=== PATIENT | female | born 1935 | race Caucasian/White ===

== ENCOUNTER → 2016-08-13 | Outpatient (CLI) | payer OTHER, BC ==
[~2016-08-13] VITALS: Ht 162.6 cm; Wt 70.9 kg
[~2016-08-13] MED LIST: AVAPRO300 MG PO; CENTRUM SILVER1 EAC4 PO; FENTANYL PA12 MCG/HR TD; FENTANYL PA25 MCG/HR TD; FENTANYL TD; FISH OIL 1,001000 M2 PO; HYDROCODONE-AP1 EAC6 PO; IRBESARTAN75 MG PO; IRON325 PO; LEVOTHYROXIN0.125 M1 PO; LIMBREL 500 MG500 MG PO; LIPITOR 20 MG T20 M1 PO; LYRICA 75 MG CA75 MG PO; MAGNESIUM OXID400 MG PO; MIRALAX17 GM PO; MOVANTIK25 MG PO; ONDANSETRON HCL4 M2 PO; OXECTA5 MG PO; OXYBUTYNIN 5 MG5 M2 PO; OXYCODONE HCL 55 MG PO; OXYCODONE HCL5 M1 PO; PERCOCET 7.5-31 EAC1 PO; PERCOCET 7.5-31 EACH PO; PRILOSEC20 MG PO; PROBIOTIC1 EAC2 PO; ROXICODONE5 M2 PO; ROXICODONE5 MG PO; SENNA8.6 MG PO; TRAZODONE HCL50 MG PO; TUMS PO; TYLENOL325 MG; VENLAFAXIN75 MG/1 T1 PO; VITAMIN B 6 PO; VITAMIN D2000 UNIT PO; VITAMINC500 PO; VOLTAREN GEL 1100 G1 TOP; ZANTAC 150MG T150 MG PO; [UNRECOGNIZED DRUG - OTHER]; fentanyl TD
--- NOTE | ~2016-08-13 | HPC ---
[facility] [place] [address] [place] [address] PAIN MANAGEMENT CONSULTATION Name: DANIELLE SMALLS Room #: REG [facility] Lloyd#: [id number] Admission: 08/13/16 Attend Phys: Joseph Hu DO Discharge: Date of : 33 Report #: [id number] THIS REPORT FOR: //name// CC: Art Hu The patient is a 81-year-old female typically treated for thoracolumbar scoliosis, thoracolumbar spondylosis, right shoulder pain requiring complex medication management. Last seen in pain clinic 05/07/2016. Continued on Duragesic 37 mcg (1 Duragesic patch at 25 mcg and 1 Duragesic patch at 12 mcg q. 73 hours), oxycodone 5 mg typically 75 tablets for 30-60 days. Voltaren gel topically. Last urine drug screen 11/15/2014 was positive for prescribed medications. When I last saw the patient, I recommended she follow up with an MRI and see orthopedist for consideration for definitive intervention on her shoulder. The patient did have an MRI arthrogram accomplished at [facility]. She followed up with Dr. Ross. Ultimately, suggested that her options were right total shoulder arthroplasty or simply conservative therapy. She elected to continue with conservative therapy. She is not at all interested in shoulder arthroplasty. She returns to pain clinic today stating "I am full of pain with scoliosis and right shoulder pain." Despite this, she does not want to do anything interventional with the shoulder. At 81 years of age, she is showing a little bit of depression and anxiety. She rates her pain at 3 on a 0-10 visual analog scale, upto 9 when she is standing. Again, pain in the right shoulder and chronic back pain for 10 years. We reviewed the fact that opiate medications are being used to provide analgesia adequate to support activities of daily living, not attempting to achieve a specific pain score on the 0-10 Visual Analog Scale. The current opiate medications are providing sufficient analgesia to allow the patient to participate in activities of daily living. The patient is not exhibiting any aberrant behavior suggestive of drug diversion. The patient is not having any adverse reactions to medications. The patient is not suffering from daytime somnolence or mental acuity changes. The patient is managing opiate-induced constipation with appropriate vvia-iij-vbwiboc agents and dietary considerations. The patient was counseled on concern for caution with operating a motor vehicle while using opiate medications. A physical exam was performed and the patient's functional status was evaluated. All patients with back pain were advised against the bed rest greater than 4 days and were advised to return to normal activities. Pain score assessment was noted and the treatment plan was reviewed with the patient. All current medications, both prescribed and OTC were reviewed and reconciled on the electronic medical record. Tobacco screening was accomplished and smoking [address] [address] PAIN MANAGEMENT CONSULTATION Name: DANIELLE SMALLS Room #: REG [facility] Lloyd#: [id number] Admission: 08/13/16 Attend Phys: Joseph Hu DO Discharge: Date of : 33 Report #: [id number] cessation was advised when indicated. BMI was noted and diet/exercise modification was recommended for all patients following outside normal parameters. I reviewed with the patient today their responsibilities to safeguard prescription medications, reviewed their responsibility to utilize medications only as prescribed by the physician. They are to seek and receive pain medications only from 1 physician group ( [facility]). They are to use 1 pharmacy and keep the clinic informed if they change pharmacies. Their responsibilities include making followup visits in a timely fashion and to avoid abrupt discontinuation of medication usage. Their responsibilities further include bringing their medications (bottles from the pharmacy with residual pills) to the visit for possible confirmation of pill counts and the patient understands it is their responsibility to submit to random drug screens to ensure both that the medications prescribed are present, and that no other controlled substances are present. All prescriptions provided today were generated electronically. The patient was seen in the company of her daughter who is supportive. PHYSICAL EXAMINATION: Shows an 81-year-old female, BMI is 26.8 kilograms per meter squared. Vital signs generally stable as noted in the EMR Cervical range of motion is full. Had a significant range reduction in range of motion in the right shoulder, arm, scoliosis is noted with diffuse tenderness in the axial back, thoracic and lumbar. Lower extremity strength, however, is preserved. Gait is tandem. ASSESSMENT: Symptomatic thoracolumbar scoliosis and spondylosis, right shoulder pain secondary to significant degenerative joint disease, the patient is electing not to proceed with further intervention requiring complex medication management. RECOMMENDATION: We will continue Duragesic 37 mcg q. 72 hours, oxycodone 5 mg p.r.n., typically taking 1-2 tablets a day. I have taken the liberty of writing for 1 prescription for 75 tablets, which should last 2 months. Continue Voltaren gel topically. Follow up in 2 months for reevaluation, earlier if needed. <ELECTRONICALLY SIGNED> By: Joseph Hu DO 08/14/16 [id number] Joseph Hu DO /nt
[2016-08-13 14:22] VITALS: BP 149/83
== END | disposition home or self-care (01) ==
LOC: PAIN 06:52
DX: M41.85 Other forms of scoliosis, thoracolumbar region (principal); I10 Essential (primary) hypertension; Z87.891 Personal history of nicotine dependence

== ENCOUNTER → 2016-10-15 | Outpatient (CLI) | payer OTHER, BC ==
[~2016-10-15] VITALS: Ht 162.6 cm; Wt 71.7 kg
[~2016-10-15] MED LIST changes: +MS CONTIN15 MG PO
--- NOTE | ~2016-10-15 | HPC ---
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 Last seen in the pain clinic 08/13/2016. She has been stable on Duragesic patch 25 and then up to 37 mcg for a couple of years, though she notes recently she has been getting redness and itching at the patch site. The patient returns to pain clinic today noting pain is becoming more problematic. The patch is causing erythema and in fact she has a patch on her right anterior chest wall, it does appear to be a little erythematous and in fact the prior patch site, over the left deltoid still shows small red rectangle compatible with the size of the patch. The patient notes "I am full of pain." She complains about pain in her right shoulder and back. PHYSICAL EXAMINATION: Unchanged, 81-year-old female, BMI is 27.1 kilograms per meter squared. Subjective pain score is 9/10. Blood pressure 143/80, pulse is 110, respirations 16. BMI is 27.1 kilograms per meter squared. Limited range of motion in right shoulder. Rises from chair using armrest. Diffuse tenderness across the back, thoracolumbar scoliosis is noted. Lower extremity strength is symmetric. The patient tells me she is moving to a prison community with assisted living capability . She is actually enthusiastic about this move. She will have 2 room unit, she will be able to display some of her cherished antique dolls. She will have less maintenance for her home and there will be someone to assist with medication management. Today, we did discuss at length opiate rotation. She had a dropped down from 37 to 25 mcg of Duragesic. Continues to use 5 mg Percocet 2 or 3 times a day. Uses Voltaren gel topically. We have elected today to simply discontinue the Duragesic patch. We will rotate morphine sulfate extended release (MS Contin) 15 mg q. 8 hours. The patient is a bit of a night owl, gets up late in the morning and stays up late. I suggest she take one MS Contin whenever she arises, the second one about 8 hours later and a third one at her bedtime. If after 5 half life, i.e., 2-3 days, she finds untoward sedation suggest she drop back to b.i.d. I have taken the liberty of writing for 2 months of current medications, one prescription today for MS Contin 15 mg q.8 hours, dispensed #90, second set of prescriptions both the MS Contin and/or oxycodone 5 mg, dispensed 75 tablets, directions one tablet 2-3 times a day as needed for breakthrough pain. If patient is doing well, we will see her back in [address] [address] PAIN MANAGEMENT CONSULTATION Name: DANIELLE SMALLS Room #: REG [facility] Desai#: [id number] Admission: 10/15/16 Attend Phys: Joseph Hu, Discharge: Date of : 33 Report #: [id number] for reevaluation. If, however, she has problems with this prescription, I asked to see her back in 3 weeks and have her bring back the dated 4-week release prescription. The patient was discharged in good and stable condition today, she was seen for prolonged visit, spent reviewing therapeutic issues, discussing opiate rotation. The other drug we considered was methadone 5 mg t.i.d. We may trial this if the MS Contin does not afford adequate efficacy. We request a urine drug screen today, last urine screen was back in 10/2014. The patient was unable to urinate today. She states she has "kidney problems." I have no aberrant behavior suggestive for drug diversion, simply trying to complying with her opiate consent to treat contract. I did suggest that on her next visit she try and hydrate prior to the visit and not urinate prior to coming to see us in anticipation of a possible UDS at that time. Discharged in good and stable condition, seen for approximately 8:15-8:45. Greater than 50% of this time spent counseling the patient. <ELECTRONICALLY SIGNED> By: Joseph Hu DO 10/16/16 0713 [id number] Joseph Hu DO /nt
[2016-10-15 08:27] VITALS: BP 143/80
== END | disposition home or self-care (01) ==
LOC: PAIN 06:52
DX: M19.011 Primary osteoarthritis, right shoulder (principal); M54.5 Low back pain; M41.85 Other forms of scoliosis, thoracolumbar region; M47.895 Other spondylosis, thoracolumbar region; G89.29 Other chronic pain; Z87.891 Personal history of nicotine dependence; Z88.6 Allergy status to analgesic agent

== ENCOUNTER → 2016-12-18 | Outpatient (CLI) | payer OTHER, BC ==
[~2016-12-18] VITALS: Ht 162.6 cm; Wt 73.4 kg
[~2016-12-18] MED LIST changes: +METOCLOPRAMIDE 55 M1 PO; +NUCYNTA ER100 MG PO
--- NOTE | ~2016-12-18 | HPC ---
[facility] [address] [address] PAIN MANAGEMENT CONSULTATION Name: DANIELLE SMALLS Room #: REG [facility] Desai#: [id number] Admission: 12/18/16 Attend Phys: Joseph Hu DO Discharge: Date of : 33 Report #: [id number] THIS REPORT FOR: //name// CC: Art Hu DATE OF SERVICE: 12/18/2016 The patient presented today for a "family conference." She was seen in the company of her daughter who is supportive. This is actually daughter who moved from [place]. She has another daughter who is typically the family member who brings her into the pain clinic. Today, we had a prolonged visit from 15:02 to past 15:35, greater than 50% of this 25+ minute visit was spent counseling the patient. Initially, the patient had been on Duragesic and doing somewhat okay on this medication, but she developed some cutaneous reaction, we rotated the MS Contin 15 mg q. 8 hours. This seemed to afford untoward sedation. The patient was spending most of her day in bed. I rotated to Nucynta extended release 100 mg b.i.d. at last visit. The nursing staff went through a great deal of trouble to get this prior authorized. The patient states she took 1 tablet last . She feels that she developed urinary retention, ultimately ended up in a hospital. She has been taking MS Contin on her own despite living in a detention facility that administers her medications. We had a long discussion about current issues. She states that she has chronic hip and low back pain. Again, she rates greater than 10 years, she does have significant scoliosis, rates her pain at 8 on VAS today. She states that she spends most of her day in bed. She does no housekeeping, no food preparation, no laundry. She lives at [facility]. She has made no efforts to get out and participate in the community life there. She does not go to meals. The meals are brought to her. She spends most of her day watching TV or napping. PHYSICAL EXAMINATION: Essentially unchanged from prior visits. RECOMMENDATIONS: We had a long discussion about social isolation, anxiety, depression, sedation with opiate analgesics. We talked about reasonable expectations for pain management, stressing that medications are simply available to "take the edge" off her pain and able her to be more functional, social and get out of bed and move. [address] [address] PAIN MANAGEMENT CONSULTATION Name: DANIELLE SMALLS [id number] Admission: 12/18/16 Attend Phys: Joseph Hu DO Discharge: Date of : 33 Report #: [id number] I reviewed that MS Contin actually has as a listed side effect concerns for urinary retention. Nucynta does not. I assured her that 100 mg of Nucynta b.i.d. extended release is roughly equivalent to 30 mg of morphine. She should not have opiate withdrawal as she is only taking 2 MS Contin daily presently. She does note she is having significant problems with constipation and nausea and it sounds like she has been taking a fair bit of ondansetron for this. I stressed that ondansetron itself is quite constipating and in conjunction with morphine, it probably is simply making matters worse. Ultimately, family agrees that they will trial Nucynta ER 100 mg b.i.d. for 30 days. I did take the liberty of writing for metoclopramide 5 mg to be used daily a.m. with the second dose available in the afternoon if nausea persists. Stressed the need for patient to try and get out of her social isolation, be a little more physically active. We will follow up in 3-4 weeks to reevaluate. Discharged in good and stable condition after prolonged visit spent with the patient and her daughter. <ELECTRONICALLY SIGNED> By: Joseph Hu DO 12/21/16 1427 [id number] Joseph Hu DO /nt
[2016-12-18 14:43] VITALS: BP 178/94
== END | disposition home or self-care (01) ==
LOC: PAIN 07:55
DX: M54.5 Low back pain (principal); M25.559 Pain in unspecified hip; F41.9 Anxiety disorder, unspecified; F32.9 Major depressive disorder, single episode, unspecified

== ENCOUNTER → 2017-01-14 | Outpatient (CLI) | payer OTHER, BC ==
[~2017-01-14] VITALS: Ht 162.6 cm; Wt 70.9 kg
[~2017-01-14] MED LIST changes: +NUCYNTA ER150 MG PO
--- NOTE | ~2017-01-14 | HPC ---
[facility] [place] [address] [place] [address] PAIN MANAGEMENT CONSULTATION Name: DANIELLE SMALLS Room #: REG [facility] Desai#: [id number] Admission: 01/14/17 Attend Phys: Joseph Hu DO Discharge: Date of : 33 Report #: [id number] THIS REPORT FOR: //name// CC: Art Hu The patient is an 81-year-old female being treated for thoracolumbar scoliosis and spondylosis, chronic pain syndrome requiring complex medication management. She is seen today in the company of a daughter who is supportive. She has 2 daughters in town, one recently moved from [place]. Today, she is seen in the company of a daughter who typically brings her. We had a prolonged visit last time on 12/18/2016 and again we spent approximately 25 minutes with the patient today from 11:29 to approximately 12:00. At last visit, we had encouraged the patient to trial tapentadol 100 mg extended release, which I had prior written. She had been doing reasonably well with Duragesic, but developed a continuous reaction. I rotated to MS Contin and unfortunately this caused untoward sedation. Today, she presents actually looking a little more alert and oriented than she has in time. Daughter tells me that she finds her mother is much more engaged, much less sleepy and drowsy. She spends much more time awake and out of bed. While this is positive in many aspects, it does give her more time to focus on her chronic axial pain, which she rates an 8 on a VAS. She describes chronic 10-year pain from her scoliosis, dull aching sensation in the back exacerbated with standing and walking. The patient uses a walker to get around, she lives at [facility], but still remains quite disengaged and somewhat antisocial. She takes all of her meals in her room. She does not get out and walk to the dining room. She does not participate in any of the group activities that are available. She does have, I believe, a strong component of anxiety and depression. When her daughters are able to come visit her, she does much better from a global standpoint. Clearly, she has high degree of attention care and maintenance "needs." PHYSICAL EXAMINATION: Shows an 81-year-old female, BMI is 26.8 kg/m2. As noted, the VAS is 8/10. Blood pressure 130/78, pulse 124, respirations 22. Again today, she is alert and oriented to person, place and time, judged to be a reasonable historian, does appear much more engaged today. Still has some early cognitive decline from memory concerns. Uses a walker to get around, does have arthritic changes in her hands, significant thoracoscoliosis. Rises from chair using the armrest and then the walker. Modestly antalgic gait, diffuse tenderness in the back. [facility] [address] [place] [address] PAIN MANAGEMENT CONSULTATION Name: DANIELLE SMALLS Room #: REG [facility] Lloyd#: [id number] Admission: 01/14/17 Attend Phys: Joseph Hu DO Discharge: Date of : 33 Report #: [id number] We reviewed the fact that opiate medications are being used to provide analgesia adequate to support activities of daily living, not attempting to achieve a specific pain score on the 0-10 Visual Analog Scale. The current opiate medications are providing sufficient analgesia to allow the patient to participate in activities of daily living. The patient is not exhibiting any aberrant behavior suggestive of drug diversion. The patient is not having any adverse reactions to medications. The patient is not suffering from daytime somnolence or mental acuity changes. The patient is managing opiate-induced constipation with appropriate xnit-sna-jxvaooa agents and dietary considerations. The patient was counseled on concern for caution with operating a motor vehicle while using opiate medications. A physical exam was performed and the patient's functional status was evaluated. All patients with back pain were advised against the bed rest greater than 4 days and were advised to return to normal activities. Pain score assessment was noted and the treatment plan was reviewed with the patient. All current medications, both prescribed and OTC were reviewed and reconciled on the electronic medical record. Tobacco screening was accomplished and smoking cessation was advised when indicated. BMI was noted and diet/exercise modification was recommended for all patients following outside normal parameters. I reviewed with the patient today their responsibilities to safeguard prescription medications, reviewed their responsibility to utilize medications only as prescribed by the physician. They are to seek and receive pain medications only from 1 physician group ( [facility]). They are to use 1 pharmacy and keep the clinic informed if they change pharmacies. Their responsibilities include making followup visits in a timely fashion and to avoid abrupt discontinuation of medication usage. Their responsibilities further include bringing their medications (bottles from the pharmacy with residual pills) to the visit for possible confirmation of pill counts and the patient understands it is their responsibility to submit to random drug screens to ensure both that the medications prescribed are present, and that no other controlled substances are present. All prescriptions provided today were generated electronically. ASSESSMENT: Thoracolumbar scoliosis and spondylosis, chronic pain syndrome requiring complex medication management, comorbidity includes significant anxiety and depression. RECOMMENDATIONS: We will try an asymmetric dosing of the tapentadol, increase the morning dose to 150 mg extended release, continue the evening dose of 100 mg. We will enable the patient to take upch-css-dopdbdh Aleve 220 mg up to twice a day and sawg-pja-hnlpgla acetaminophen not to exceed 2000 mg a day. Again, I strongly encouraged increased physical activity, perhaps participate in one of [facility] [address] [place] [address] PAIN MANAGEMENT CONSULTATION Name: DANIELLE SMALLS Room #: REG [facility].#: [id number] Admission: 01/14/17 Attend Phys: Joseph Hu DO Discharge: Date of : 33 Report #: [id number] the chair aerobics and range of motion classes afforded at [facility] and hopefully start to engage in some social interaction including walking to dinner. Follow up in 4 weeks to evaluate efficacy of medication changes. If doing well, we will start writing for a q.2 month interval. <ELECTRONICALLY SIGNED> By: Joseph Hu DO 01/15/17 1225 1156 Joseph Hu DO /nt
[2017-01-14 11:06] VITALS: BP 130/78
== END | disposition home or self-care (01) ==
LOC: PAIN 07:00
DX: M41.85 Other forms of scoliosis, thoracolumbar region (principal); G89.4 Chronic pain syndrome; M47.895 Other spondylosis, thoracolumbar region; F41.9 Anxiety disorder, unspecified; F32.9 Major depressive disorder, single episode, unspecified; Z87.891 Personal history of nicotine dependence

== ENCOUNTER → 2017-02-05 | Outpatient (CLI) | payer OTHER, BC ==
[~2017-02-05] VITALS: Ht 162.6 cm; Wt 75.5 kg
--- NOTE | ~2017-02-05 | HPC ---
[facility] [place] [address] PAIN MANAGEMENT CONSULTATION Name: DANIELLE SMALLS Room #: REG ELVIEYinka Desai#: [id number] Admission: 02/05/17 Attend Phys: Joseph Hu DO Discharge: Date of : 33 Report #: [id number] THIS REPORT FOR: //name// CC: Art Hu DATE OF SERVICE: 02/05/2017 The patient is an 81-year-old female, long known to the pain clinic for thoracolumbar scoliosis, spondylosis, chronic pain syndrome, axial back pain, requiring high risk complex medication management. She suffers from some chronic anxiety and depression. Last visit 01/14/2017, we increased tapentadol ER from 100 mg b.i.d. to an asymmetric dosing of 150 mg in the morning and 100 at night. She uses atuu-hqc-pcghunq Aleve and Tylenol p.r.n. Suggested strongly that she try increasing physical activity, participation in many of the activities offered at [facility] including general, socialization and group activities to include chair aerobics. She returns to pain clinic today with one of her daughter's, typically she is seen in the company of one of her 2 daughters who both have relocated from [facility] to [place]. While the patient remains somewhat flattened affect, stating her pain is 3/10 (it is actually quite good) stating that she does note medications are helpful, her daughter notes that the patient has been much more awake, alert, oriented and engaged over the past month. She did run out of her Limbrel 500 mg b.i.d., a "food supplement" that is an anti-inflammatory agent not in the NSAID class. She thinks that that agent had been helpful and she would like to go back on it. She notes that the metoclopramide 5 mg in the morning has been helping with her chronic nausea and in fact helps with constipation as well. Overall, she seems to be doing reasonably well. Again, subjective pain score 3 on a VAS. She still remains fairly antisocial and noninvolved, relatively sedentary, though again, the daughter notes that she has been shopping on [employer] and participating in more activities that she has not been for a while. PHYSICAL EXAMINATION: Otherwise unchanged. An 81-year-old female, BMI is 28.5 kilograms per meter squared. Vital signs stable as noted in the EMR. Awake, alert, moderately flat affect, uses a walker to ambulate. Gait is minimally antalgic. Lower extremity strength is preserved. Significant thoracolumbar scoliosis with pain. We reviewed the fact that opiate medications are being used to provide analgesia adequate to support activities of daily living, not attempting to achieve a specific pain score on the 0-10 Visual Analog Scale. The current opiate medications are providing sufficient analgesia to allow the patient to participate in activities of daily living. The patient is not exhibiting any [address] [address] PAIN MANAGEMENT CONSULTATION Name: DANIELLE SMALLS Room #: REG AGNIESZKA Desai#: [id number] Admission: 02/05/17 Attend Phys: Joseph Hu DO Discharge: Date of : 33 Report #: [id number] aberrant behavior suggestive of drug diversion. The patient is not having any adverse reactions to medications. The patient is not suffering from daytime somnolence or mental acuity changes. The patient is managing opiate-induced constipation with appropriate zdae-frq-uoyefbi agents and dietary considerations. The patient was counseled on concern for caution with operating a motor vehicle while using opiate medications. A physical exam was performed and the patient's functional status was evaluated. All patients with back pain were advised against the bed rest greater than 4 days and were advised to return to normal activities. Pain score assessment was noted and the treatment plan was reviewed with the patient. All current medications, both prescribed and OTC were reviewed and reconciled on the electronic medical record. Tobacco screening was accomplished and smoking cessation was advised when indicated. BMI was noted and diet/exercise modification was recommended for all patients following outside normal parameters. I reviewed with the patient today their responsibilities to safeguard prescription medications, reviewed their responsibility to utilize medications only as prescribed by the physician. They are to seek and receive pain medications only from 1 physician group ( [facility]). They are to use 1 pharmacy and keep the clinic informed if they change pharmacies. Their responsibilities include making followup visits in a timely fashion and to avoid abrupt discontinuation of medication usage. Their responsibilities further include bringing their medications (bottles from the pharmacy with residual pills) to the visit for possible confirmation of pill counts and the patient understands it is their responsibility to submit to random drug screens to ensure both that the medications prescribed are present, and that no other controlled substances are present. All prescriptions provided today were generated electronically. ASSESSMENT: Thoracolumbar scoliosis, spondylosis, axial back pain requiring high-risk complex medication management compounded by some chronic anxiety, depression. RECOMMENDATION: Continue tapentadol 150 mg in the morning and 100 at night extended release, I have taken the liberty of writing for 2 months of current medication. Follow up at that time, earlier if needed. By: [id number] Joseph Hu DO /nt
[2017-02-05 12:38] VITALS: BP 142/80
== END | disposition home or self-care (01) ==
LOC: PAIN 07:51
DX: M41.85 Other forms of scoliosis, thoracolumbar region (principal); M47.815 Spondylosis without myelopathy or radiculopathy, thoracolumbar region; F32.9 Major depressive disorder, single episode, unspecified; F41.9 Anxiety disorder, unspecified; Z87.891 Personal history of nicotine dependence

== ENCOUNTER → 2017-07-22 | Outpatient (CLI) | payer OTHER, BC ==
[~2017-07-22] VITALS: Ht 160 cm; Wt 80.3 kg
[~2017-07-22] MED LIST changes: +GRALISE600 MG PO; +LYRICA 50 MG50 MG PO; +NUCYNTA ER200 MG PO; +NUCYNTA ER250 MG PO
--- NOTE | ~2017-07-22 | HPC ---
[facility] [place] [address] [address] [place] [address] PAIN MANAGEMENT CONSULTATION Name: DANIELLE SMALLS Room #: REG AGNIESZKA Desai#: [id number] Admission: 07/22/17 Attend Phys: Joseph Hu DO Discharge: Date of : 33 Report #: [id number] THIS REPORT FOR: //name// CC: Art Hu DATE OF SERVICE: 07/22/2017 The patient is an 82-year-old female being treated for symptomatic thoracolumbar scoliosis and spondylosis without myelopathy nor radiculopathy, chronic pain syndrome requiring complex medication management, significant osteoarthritis affecting multiple joints including shoulders, hands, and knees. The patient had been stable on Duragesic for some time. She is having problems with somnolence. We rotated to tapentadol 150 mg extended release in the morning and 100 at bedtime. We discontinued Limbrel due to cost concerns. We did do a right shoulder injection at last visit with about 50% efficacy. She returns to Pain Clinic today noting that tapentadol seems to be losing efficacy overall. She still is moderately sedate, but she has had less issues with soporific effect with the tapentadol than with other opiates. Physical examination is otherwise unchanged. She rates her pain fairly high about 8 on a VAS. She is alert and oriented to person, place, and time, judged to be a reasonable historian. Vital signs are stable as noted in the EMR. Opiate consent to treat contract was reviewed with the patient. She does not use tobacco products. Significant decreased range of motion both shoulders secondary to pain. Significant osteoarthritic changes in her hands, some osseous hypertrophy in bilateral knees. We reviewed the fact that opiate medications are being used to provide analgesia adequate to support activities of daily living, not attempting to achieve a specific pain score on the 0-10 Visual Analog Scale. The current opiate medications are providing sufficient analgesia to allow the patient to participate in activities of daily living. The patient is not exhibiting any aberrant behavior suggestive of drug diversion. The patient is not having any adverse reactions to medications. The patient is not suffering from daytime somnolence or mental acuity changes. The patient is managing opiate-induced constipation with appropriate rxro-isa-bsqvlco agents and dietary considerations. The patient was counseled on concern for caution with operating a motor vehicle while using opiate medications. A physical exam was performed and the patient's functional status was evaluated. All patients with back pain were advised against the bed rest greater than [address] [address] PAIN MANAGEMENT CONSULTATION Name: DANIELLE SMALLS Room #: REG CL Lloyd#: [id number] Admission: 07/22/17 Attend Phys: Joseph Hu DO Discharge: Date of : 33 Report #: [id number] days and were advised to return to normal activities. Pain score assessment was noted and the treatment plan was reviewed with the patient. All current medications, both prescribed and OTC were reviewed and reconciled on the electronic medical record. Tobacco screening was accomplished and smoking cessation was advised when indicated. BMI was noted and diet/exercise modification was recommended for all patients following outside normal parameters. I reviewed with the patient today their responsibilities to safeguard prescription medications, reviewed their responsibility to utilize medications only as prescribed by the physician. They are to seek and receive pain medications only from 1 physician group ( [facility]). They are to use 1 pharmacy and keep the clinic informed if they change pharmacies. Their responsibilities include making followup visits in a timely fashion and to avoid abrupt discontinuation of medication usage. Their responsibilities further include bringing their medications (bottles from the pharmacy with residual pills) to the visit for possible confirmation of pill counts and the patient understands it is their responsibility to submit to random drug screens to ensure both that the medications prescribed are present, and that no other controlled substances are present. All prescriptions provided today were generated electronically. ASSESSMENT: Thoracolumbar scoliosis, spondylosis without myelopathy, no radiculopathy, chronic pain syndrome requiring complex medication management, osteoarthritis affecting multiple joints, status post right shoulder steroid injection at last visit with about 50% improvement. She wishes to repeat contralateral (left) shoulder injection today. I have taken the liberty of increasing tapentadol to 200 mg extended release in the morning, continuing 100 mg at bedtime. I have taken the liberty of writing for 2 months of current medication. If that 3 weeks, she does not find this efficacious, I have instructed her to bring the "4-week release" tapentadol 200 mg extended release prescription back and I will provide tapentadol extended release 250 mg prescription, release 30 tablets at that time. PROCEDURE: Left shoulder injection under fluoroscopy. PROCEDURE NOTE: After written and informed consent was obtained, the patient placed in the supine position on the fluoroscopy suite. Skin overlying shoulder was cleansed with ChloraPrep. Skin wheal with Xylocaine was raised. A 22-gauge stylet needle was placed to contact the humeral head lateral to the glenoid. Negative aspiration was accomplished. 1 mL of Omnipaque injected, which showed spread within the shoulder joints. This was followed with 40 mg triamcinolone [facility] [address] [place] [address] PAIN MANAGEMENT CONSULTATION Name: DANIELLE SMALLS Room #: PORTILLO Desai#: [id number] Admission: 07/22/17 Attend Phys: Joseph Hu DO Discharge: Date of : 33 Report #: [id number] with 2 mL of 0.5% preservative-free bupivacaine. Fluoroscopy time was under 15 seconds. Discharged in good and stable condition. <ELECTRONICALLY SIGNED> By: Joseph Hu DO 07/23/17 0727 [id number] Joseph Hu DO /nt
[2017-07-22 13:25] VITALS: BP 141/71
== END ==
LOC: PAIN 07-15 13:30
DX: M47.895 Other spondylosis, thoracolumbar region (principal); M41.85 Other forms of scoliosis, thoracolumbar region; G89.29 Other chronic pain; M19.90 Unspecified osteoarthritis, unspecified site; Z79.899 Other long term (current) drug therapy

== ENCOUNTER → 2017-11-01 | Outpatient (CLI) | payer OTHER, BC ==
[~2017-11-01] VITALS: Ht 165.1 cm; Wt 84.8 kg
[~2017-11-01] MED LIST changes: -GRALISE600 MG PO
--- NOTE | ~2017-11-01 | HPC ---
[facility] [place] [address] [address] [place] [address] PAIN MANAGEMENT CONSULTATION Name: DANIELLE SMALLS Room #: REG [facility] Lloyd#: [id number] Admission: 11/01/17 Attend Phys: Joseph Hu DO Discharge: Date of : 33 Report #: [id number] THIS REPORT FOR: //name// CC: [facility] physician/PCP Joseph Hu The patient is an 82-year-old female, long treated for axial back pain. She has significant thoracolumbar scoliosis and thoracolumbar spondylosis without myelopathy. She has chronic pain syndrome requiring complex medication management. Comorbidity includes osteoarthritis affecting her shoulders, hands and knees. The patient presents to the pain clinic today for prolonged visit. She is seen in the company of one of her daughters who was supportive. She was seen from 12:55-13:25, greater than 50% of this 25+ minute visit was spent counseling the patient. The patient originally presented to the pain clinic at [facility] in 07/2014, she had prior been a patient of mine at [facility] for several years. She has had lumbar decompressive laminectomy, significant thoracolumbar scoliosis and spondylosis requiring complex medication management. She has failed multiple opiate analgesics including oxycodone (Percocet), OxyContin, and then rotated to Duragesic. Ultimately she has failed all of these opioid analgesics due untoward sedation. Rotated to tapentadol extended release titrating up to 250 mg in the morning and 100 at night, all with no significant efficacy. Ultimately, the patient discontinued these medications. She states that she has had no withdrawal symptoms and noted no change in her symptoms, although she is less sedate. Comorbidity does include chronic stage 2 kidney disease precluding use of NSAID type agents. We have trialled Lyrica titrated up to 225 mg, but the patient felt "exhaustion weakness and nausea" and rapidly weaned off Lyrica. I had suggested she try and resume that agent, but she was loathe to do so. The patient tells me that recently she had her annual assessment at [facility], apparently they come in and do functional status exam. While the patient has been quite sedentary and weaned off of her oral opiate analgesics, the nurse suggested she try gabapentin. Today, she tells me her pain is a 9 on a VAS. Reviewing her records, she has consistently been an 8-9 on a VAS, occasionally 9.5 or 10 despite using up to 37 mcg of Duragesic (100+ milligram morphine equivalent) and moderate dose oxycodone. She notes pain is in her bilateral shoulders and low back. She uses a walker to [address] [address] PAIN MANAGEMENT CONSULTATION Name: DANIELLE SMALLS Room #: REG AGNIESZKA Desai#: [id number] Admission: 11/01/17 Attend Phys: Joseph Hu DO Discharge: Date of : 33 Report #: [id number] ambulate for balance and to offload some pressure from her back, which unfortunately exacerbates her shoulder pain. She states she is only comfortable when she is recumbent. Fortunately, her daughter was here today who is strongly reinforced my encouragement for her to try and at least move some noting that she is becoming more and more deconditioned and disabled. PHYSICAL EXAMINATION: Shows 82-year-old female, BMI is 31.1 kilograms per meter squared. Blood pressure 135/89, pulse 110 and respirations 18. She is alert and oriented to person, place and time. In fact, she is a little less sedate than I have seen her in the past. Again, she has significant osteoarthritic nodules in her hands, subjective pain in her shoulders, significant thoracolumbar scoliosis and axial back pain secondary to the spondylosis associated with same. Fortunately, her radicular symptoms are fairly nominal at this time. ASSESSMENT: Thoracolumbar scoliosis, thoracolumbar spondylosis without myelopathy, osteoarthritis affecting shoulders, hands and knees requiring complex medication management. RECOMMENDATIONS: After a prolonged visit, we have elected to conclude that the patient has failed opiate analgesics. Her functional status has not changed and her pain score has remained high. We have elected to go back to trialing calcium channel membrane stabilizing agent. We will resume Lyrica 50 mg at bedtime and she was provided with samples of the same. If this affords relief, I will provide her prescription for Lyrica 50 mg to take at bedtime. If this does not afford adequate relief, we will have her move on to trial Lyrica 75 mg (these samples were also given). If the Lyrica at 75 mg helps, we will have her start Lyrica at 75 mg at bedtime and she was provided with this prescription. If both agents fail, I will have her follow back up for reevaluation. We may consider starting Gralise. Again I was concerned with prior untoward sedation issues, Gralise may be a better option. It is noteworthy that the patient is somewhat of a "night owl." Typically, she watches TV until late in the wee hours and goes to sleep at 2 or 3 though she is actually in bed much earlier. I was hopeful that if we can actually get her on a more regular sleep-wake cycle perhaps with a somewhat soporific effect from Gralise and/or to a lesser degree even Lyrica, she may be able to fall asleep earlier at night, awake a little more fresh and have a little more ability to function. We have elected to continue Voltaren gel topically for her shoulder pain. We talked about the fact that I am leaving the practice. I will have her follow up at least one time with Dr. Alejandro Hu for consideration for starting her on Gralise or to at least have a "new set of eyes" to take a look at her to see [address] [address] PAIN MANAGEMENT CONSULTATION Name: DANIELLE SMALLS Room #: REG [facility].#: [id number] Admission: 11/01/17 Attend Phys: Joseph Hu DO Discharge: Date of : 33 Report #: [id number] if there is any other treatable pathology, though I have assured her that her significant arthritides and scoliosis probably do not spontaneously start with her, this is probably been something her parents, grandparents etc. have dealt with over the years and this is likely the only generation that treats these subjective pain maladies with opiate analgesics. All in all, I think the patient is actually somewhat relieved not to be using opiates at this point. Discharged in good and stable condition. <ELECTRONICALLY SIGNED> By: Joseph Hu DO 11/03/17 0800 [id number] 0146 Joseph Hu DO /catherine
[2017-11-01 12:43] VITALS: BP 135/89
== END ==
LOC: PAIN 07:18
DX: G89.29 Other chronic pain (principal); M41.85 Other forms of scoliosis, thoracolumbar region; M54.89 Other dorsalgia; M47.895 Other spondylosis, thoracolumbar region; M19.012 Primary osteoarthritis, left shoulder; M19.011 Primary osteoarthritis, right shoulder; Z79.899 Other long term (current) drug therapy; F11.90 Opioid use, unspecified, uncomplicated; Z87.891 Personal history of nicotine dependence

== ENCOUNTER → 2017-11-08 | Outpatient (CLI) | payer OTHER, BC ==
[~2017-11-08] VITALS: Ht 165.1 cm; Wt 84.8 kg
[~2017-11-08] MED LIST changes: +GRALISE600 MG PO
--- NOTE | ~2017-11-08 | HPC ---
[facility] [place] [address] PAIN MANAGEMENT CONSULTATION Name: DANIELLE SMALLS Room #: REG Yinka Desai#: [id number] Admission: 11/08/17 Attend Phys: Joseph Hu DO Discharge: Date of : 33 Report #: [id number] THIS REPORT FOR: //name// CC: [facility] physician/PCP Joseph Hu DATE OF SERVICE: 11/08/2017 The patient is an 82-year-old female seen last Wednesday for medication management. We had had a long discussion at that time. We ultimately elected to trial Lyrica. The patient's daughter brought the Lyrica samples back and asked for a followup appointment. She returns to pain clinic today with her daughter. She notes her pain is a 9 on VAS. She has continued to take tapentadol 250 mg extended release in the morning. I was somewhat concerned at last visit. It sounds like she had weaned off this agent altogether, actually I was in error she only weaned off the p.m. dose. I had suggested the Lyrica as a membrane stabilizing agent to help with her chronic pain generator. She has ongoing axial back pain with significant thoracolumbar scoliosis and spondylosis. Ultimately, the patient stated that she did not resume the Lyrica because when she had taken it prior (had it rapidly escalated to 225 mg dose), she felt it caused some depression. Today, after a lengthy discussion, we have elected to trial extended release gabapentin (Gralise). We will target a dose of 1200 mg with evening meal. I gave to the patient a sample pack to start with this and a prescription for Gralise 600 mg, dispensed #60 tablets 2 at dinner with multiple refills. We have also elected to continue the Nucynta 250 mg extended release single tablet in the morning. I have taken the liberty of writing for 2 months of this medication as well. Follow up in 2 months for reevaluation. By: [id number] Joseph Hu DO /nt
[2017-11-08 15:12] VITALS: BP 127/78
== END ==
LOC: PAIN 07:40
DX: M47.815 Spondylosis without myelopathy or radiculopathy, thoracolumbar region (principal); M41.85 Other forms of scoliosis, thoracolumbar region; M54.5 Low back pain; I10 Essential (primary) hypertension